=== PATIENT | male | born 1995 | race Caucasian/White ===

== ENCOUNTER 2018-11-26 03:43 | Emergency (ER) | payer BC ==
[2018-11-26] MEDS ORDERED: Proparacaine 0.5% Opth 15 ML BOT ONE (04:12)
[2018-11-26] MEDS ORDERED: Fluorescein Opthalmic Strip ONE ×2 (04:12→04:13)
== END 2018-11-26 05:20 | disposition home or self-care (01) ==
LOC: ERS 03:43
DX: H16.133 Photokeratitis, bilateral (principal)
CPT/HCPCS: 99283